=== PATIENT | male | born 1960 | race African-American/Black ===

== ENCOUNTER 2025-03-29 10:50 | Emergency (ER) | payer MEDICARE, MEDICAID ==
[~2025-03-29] VITALS: Ht 177.8 cm; Wt 79.0 kg
[~2025-03-29 10:50] MED LIST: AMLO5TAB88 PO; FOLI-43 PO; HYDR25TA PO; MELA1TAB51 PO; THIA100T72 PO; TOPUD PO; TRAM-534 PO
[2025-03-29 10:58] VITALS: O2SAT 99
[2025-03-29 13:39] VITALS: BP 142/92; PULSE 97; RESP 17; TEMP 36.7; O2SAT 99
== END 2025-03-29 13:39 | disposition home or self-care (01) ==
LOC: ER 10:50
DX: S31.119D Laceration without foreign body of abdominal wall, unspecified quadrant without penetration into peritoneal cavity, subsequent encounter (principal); I10 Essential (primary) hypertension; F12.90 Cannabis use, unspecified, uncomplicated; Z88.0 Allergy status to penicillin; X58.XXXD Exposure to other specified factors, subsequent encounter
CPT/HCPCS: 99281

== ENCOUNTER 2025-03-31 23:42 | Inpatient (IN) | payer MEDICARE, MEDICAID ==
[~2025-03-31] VITALS: Ht 177.8 cm; Wt 74.8 kg
[2025-04-01] MEDS: MORPHINE SULFATE 2 MG/ML INJ (NOT FOR IM USE) IV ONE ×2 (00:37→01:43)
[2025-04-01] MEDS: SODIUM CHLORIDE 0.9% 1,000 ML IV ONE (00:44)
[2025-04-01 00:49] LABS: BASOPHILS % 0.2 % (0.0-2.0); EOSINOPHILS % 0.3 % (0.0-5.0); HEMATOCRIT. 36.8 % (42.0-52.0); HEMOGLOBIN. 11.7 g/dL (14.0-18.0); LYMPHOCYTES % 8.6 % (20.0-50.0); MEAN CORPUSCULAR HEMOGLOBIN 26.3 pg (28.0-32.0); MEAN CORPUSCULAR HGB CONC 31.8 g/dL (31.0-37.0); MEAN CORPUSCULAR VOLUME 82.6 fL (80.0-94.0); MONOCYTES % 5.2 % (2.0-8.0); NEUTROPHILS % 85.7 % (40.0-76.0); PLATELET 537 x1000/uL (130-400); RED BLOOD CELL COUNT 4.46 mill/uL (4.7-6.1); RED CELL DISTRIBUTION WIDTH 14.5 % (11.6-14.6); WHITE BLOOD COUNT 14.4 x1000/uL (4.5-11.0)
[2025-04-01 00:56] LABS: CARBON DIOXIDE 24 mEq/L (21-32); CHLORIDE 102 mEq/L (98-107); POTASSIUM 3.8 mEq/L (3.5-5.1); SODIUM 136 mEq/L (136-145)
[2025-04-01 00:57] LABS: CALCIUM 9.9 mg/dL (8.7-10.4)
[2025-04-01 01:02] LABS: ETHANOL BLOOD < 10 mg/dL (<10); GLUCOSE 130 mg/dL (70-105); UREA NITROGEN BLOOD 9 mg/dL (9-23)
[2025-04-01 01:03] LABS: TROPONIN I HIGH SENSITIVITY 4 ng/L (3.0-53)
[2025-04-01 01:04] LABS: ALANINE AMINOTRANSFERASE < 7 IU/L (10-49); ALBUMIN 4.6 g/dL (3.2-4.8); ASPARTATE AMINOTRANSFERASE 17 IU/L (<34); BILIRUBIN DIRECT < 0.1 mg/dL (<=3.0); BILIRUBIN TOTAL 0.3 mg/dL (0.1-1.0)
[2025-04-01] MEDS: ONDANSETRON HCL 4MG/2ML INJ IV ONE (01:43)
[2025-04-01] MEDS ORDERED: PIPERACILLIN/TAZO 3.375G/100ML 100 ML IV STA (02:09)
[2025-04-01] MEDS: PIPERACILLIN/TAZO 3.375G/50ML 50 ML IV SCH ×3 (02:36→21:05)
[2025-04-01] MEDS: METRONIDAZOLE 500 MG PREMIX 100 ML IV ONE (02:37)
[2025-04-01] MEDS ORDERED: ACETAMINOPHEN 325MG TABLET PO PRN (02:45)
[2025-04-01] MEDS: LABETALOL 5MG/ML 4ML INJ IV ONE (03:06)
[2025-04-01] MEDS ORDERED: NALOXONE HCL 0.4MG/ML VIAL IV PRN (03:15)
[2025-04-01 04:00] LABS: CLARITY URINE CLEAR (CLEAR); COLOR URINE YELLOW (YELLOW); GLUCOSE URINE NEGATIVE (NEGATIVE); KETONES URINE NEGATIVE (NEGATIVE); LEUKOCYTE ESTERASE URINE NEGATIVE (NEGATIVE); NITRITE URINE NEGATIVE (NEGATIVE); OCCULT BLOOD URINE NEGATIVE (NEGATIVE); PROTEIN URINE 1+ (NEGATIVE); SPECIFIC GRAVITY URINE 1.059 (1.005-1.030)
[2025-04-01 04:01] LABS: *AMPHETAMINES SCREEN URINE NEGATIVE (NEGATIVE); *BARBITURATES SCREEN URINE NEGATIVE (NEGATIVE); *BENZODIAZEPINES SCREEN URINE NEGATIVE (NEGATIVE); *COCAINE SCREEN URINE PRESUMPTIVE POSITIVE (NEGATIVE); CANNABINOID URINE SCREEN PRESUMPTIVE POSITIVE (NEGATIVE); METHADONE URINE SCREEN NEGATIVE (NEGATIVE); OPIATES URINE SCREEN PRESUMPTIVE POSITIVE (NEGATIVE); PHENCYCLIDINE URINE SCREEN PRESUMTIVE POSITIVE (NEGATIVE)
[2025-04-01] MEDS: ONDANSETRON HCL 4MG/2ML INJ IV PRN (04:13)
[2025-04-01] MEDS: MORPHINE SULFATE 4 MG/ML INJ (FOR IV/IM USE) IV PRN (04:14)
[2025-04-01 04:22] LABS: SQUAMOUS EPITHELIAL CELL URINE 1+ /lpf (RARE/1+)
[2025-04-01 04:23] LABS: BACTERIA URINE NONE SEEN; WBC URINE 0-2 /hpf (0-2)
[2025-04-01] MEDS: SODIUM CHLORIDE 0.45% 1,000 ML IV SCH (04:30)
[2025-04-01 04:36] LABS: ECSTASY MDMA SCREEN URINE NEGATIVE (NEGATIVE)
[2025-04-01 05:02] VITALS: BP 142/94; PULSE 83; RESP 18; TEMP 36.6
[2025-04-01] MEDS: LORAZEPAM 2MG/ML UD SYRINGE IV SCH (05:18)
[2025-04-01] MEDS ORDERED: IOHEXOL-300 100 ML BOTTLE ONE (06:30)
[2025-04-01 06:53] LABS: PROTHROMBIN TIME 10.6 sec (9.6-11.0)
[2025-04-01] MEDS: VANCOMYCIN 1.75GM PMX (XELLIA) 350 ML IV SCH (07:49)
[2025-04-01 08:16] VITALS: BP 178/125; PULSE 89; RESP 18; TEMP 36.6; O2SAT 100
[2025-04-01] MEDS: THIAMINE HCL 100MG TABLET PO SCH (08:57)
[2025-04-01] MEDS: PANTOPRAZOLE SODIUM 40 MG/VIAL IV SCH (08:57)
[2025-04-01] MEDS: FERROUS SULFATE 325MG TABLET PO SCH (08:57)
[2025-04-01] MEDS: FOLIC ACID 1MG TABLET PO SCH (08:57)
[2025-04-01] MEDS: MULTIVITAMINS,THER W-MINERALS TABLET PO SCH (08:57)
[2025-04-01] MEDS: AMLODIPINE 5MG TABLET PO SCH (08:58)
[2025-04-01] MEDS: HYDROCODONE/ACETAMINOPHEN 5/325MG TABLET PO PRN (09:00)
[2025-04-01 12:17] VITALS: BP 149/112; PULSE 90; RESP 18; TEMP 36.6; O2SAT 97
[2025-04-01] MEDS: DEXT 5%/0.9% NACL 1,000 ML IV SCH (15:22)
[2025-04-01 16:21] VITALS: BP 160/113; PULSE 85; RESP 18; TEMP 36.6; O2SAT 98
[2025-04-01] MEDS: VANCOMYCIN 1GM/200ML PMX (BAXTER) IV SCH (16:31)
[2025-04-01] MEDS: HYDROCHLOROTHIAZIDE 25MG TABLET PO SCH (16:59)
[2025-04-01 18:52] LABS: CHLORIDE 100 mEq/L (98-107); POTASSIUM 4.4 mEq/L (3.5-5.1); SODIUM 133 mEq/L (136-145)
[2025-04-01 18:53] LABS: CALCIUM 9.4 mg/dL (8.7-10.4); CARBON DIOXIDE 19 mEq/L (21-32)
[2025-04-01 18:58] LABS: CREATININE 1.1 mg/dL (0.6-1.3); GLUCOSE 154 mg/dL (70-105)
[2025-04-01 18:59] LABS: UREA NITROGEN BLOOD 12 mg/dL (9-23)
[2025-04-01 19:00] LABS: ALANINE AMINOTRANSFERASE 7 IU/L (10-49); ALBUMIN 4.1 g/dL (3.2-4.8); ASPARTATE AMINOTRANSFERASE 14 IU/L (<34)
[2025-04-01 19:01] LABS: BILIRUBIN TOTAL 0.4 mg/dL (0.1-1.0); PHOSPHORUS 5.3 mg/dL (2.5-4.9); PROTEIN TOTAL 8.2 g/dL (6.0-8.3)
[2025-04-01 19:54] VITALS: BP 156/107; PULSE 93; RESP 20; TEMP 36.5; O2SAT 95
[2025-04-01 23:39] VITALS: BP 145/94; PULSE 88; RESP 20; TEMP 36.8; O2SAT 96
[2025-04-02 03:53] VITALS: BP 164/100; PULSE 73; RESP 20; TEMP 36.6; O2SAT 99
[2025-04-02] MEDS: HYDRALAZINE 20MG/ML VIAL IV NR (04:06)
[2025-04-02 08:00] LABS: HEMATOCRIT. 35.1 % (42.0-52.0); HEMOGLOBIN. 11.4 g/dL (14.0-18.0); MEAN CORPUSCULAR HEMOGLOBIN 26.4 pg (28.0-32.0); MEAN CORPUSCULAR HGB CONC 32.5 g/dL (31.0-37.0); MEAN CORPUSCULAR VOLUME 81.3 fL (80.0-94.0); MEAN PLATELET VOLUME 7.2 fl (7.4-10.4); PLATELET 522 x1000/uL (130-400); RED BLOOD CELL COUNT 4.32 mill/uL (4.7-6.1); RED CELL DISTRIBUTION WIDTH 14.8 % (11.6-14.6); WHITE BLOOD COUNT 16.5 x1000/uL (4.5-11.0)
[2025-04-02 08:01] VITALS: BP 170/97; PULSE 96; RESP 18; TEMP 36.6; O2SAT 99
[2025-04-02 08:04] LABS: CARBON DIOXIDE 22 mEq/L (21-32); CHLORIDE 101 mEq/L (98-107); POTASSIUM 3.9 mEq/L (3.5-5.1); SODIUM 134 mEq/L (136-145)
[2025-04-02 08:05] LABS: CALCIUM 8.5 mg/dL (8.7-10.4)
[2025-04-02 08:09] LABS: CREATININE 1.2 mg/dL (0.6-1.3); DIFFERENTIAL COMMENT 1; GLUCOSE 144 mg/dL (70-105)
[2025-04-02 08:10] LABS: UREA NITROGEN BLOOD 19 mg/dL (9-23)
[2025-04-02] MEDS: CLONIDINE 0.1MG TABLET PO PRN (08:53)
[2025-04-02 09:46] LABS: PLATELET ESTIMATE INCREAS
[2025-04-02 11:48] VITALS: BP 163/87; PULSE 73; RESP 20; TEMP 36.4; O2SAT 99
[2025-04-02 16:00] VITALS: BP 143/71; PULSE 57; RESP 18; TEMP 36.8; O2SAT 99
[2025-04-02 20:36] LABS: IRON 21 ug/dL (65-175)
[2025-04-02 20:39] LABS: TOTAL IRON BINDING CAPACITY 394 ug/dl (250-425)
[2025-04-02 20:42] LABS: FERRITIN 11 ng/mL (22-322); FOLIC ACID (FOLATE) SERUM 8.49 ng/mL (>5.38); VITAMIN B12 SERUM 395 pg/mL (211-911)
[2025-04-02 20:47] VITALS: BP 145/88; PULSE 89; RESP 19; TEMP 36.6; O2SAT 94
[2025-04-02] MEDS: VANCOMYCIN 750MG PMX (XELLIA) 150 ML IV SCH (21:07)
[2025-04-03] VITALS: BP 148/90; PULSE 78; RESP 20; TEMP 36.7; O2SAT 98
[2025-04-03 04:00] VITALS: BP 152/111; PULSE 97; RESP 16; TEMP 36.6; O2SAT 95
[2025-04-03 06:50] LABS: BASOPHILS % 0.2 % (0.0-2.0); HEMATOCRIT 29.9 % (42.0-52.0); HEMATOCRIT. 29.9 % (42.0-52.0); HEMOGLOBIN 9.8 g/dL (14.0-18.0); HEMOGLOBIN. 9.8 g/dL (14.0-18.0); MEAN CORPUSCULAR HEMOGLOBIN 26.4 pg (28.0-32.0); MEAN CORPUSCULAR HGB CONC 32.9 g/dL (31.0-37.0); MEAN CORPUSCULAR VOLUME 80.1 fL (80.0-94.0); MONOCYTES % 10.6 % (2.0-8.0); NEUTROPHILS % 75.2 % (40.0-76.0); PLATELET 435 x1000/uL (130-400); RED BLOOD CELL COUNT 3.73 mill/uL (4.7-6.1); RED CELL DISTRIBUTION WIDTH 14.7 % (11.6-14.6); WHITE BLOOD COUNT 9.5 x1000/uL (4.5-11.0)
[2025-04-03 07:05] LABS: CHLORIDE 103 mEq/L (98-107); POTASSIUM 3.8 mEq/L (3.5-5.1); SODIUM 134 mEq/L (136-145)
[2025-04-03 07:06] LABS: CALCIUM 8.3 mg/dL (8.7-10.4); CARBON DIOXIDE 25 mEq/L (21-32)
[2025-04-03 07:11] LABS: CREATININE 0.8 mg/dL (0.6-1.3); GLUCOSE 103 mg/dL (70-105); UREA NITROGEN BLOOD 12 mg/dL (9-23)
[2025-04-03 08:00] VITALS: BP 161/106; PULSE 86; RESP 20; TEMP 36.6; O2SAT 98
[2025-04-03 11:56] VITALS: BP 164/104; PULSE 86; RESP 18; TEMP 36.4; O2SAT 97
[2025-04-03] MEDS: LABETALOL 5MG/ML 4ML INJ IV PRN (13:44)
[2025-04-03 16:00] VITALS: BP 157/97; PULSE 79; RESP 20; TEMP 36.7; O2SAT 99
[2025-04-03 20:27] VITALS: BP 154/94; PULSE 73; RESP 16; TEMP 36.6; O2SAT 99
[2025-04-03] MEDS: AMLODIPINE 5MG TABLET PO NR (20:44)
[2025-04-04 00:23] VITALS: BP 146/89; PULSE 85; RESP 17; TEMP 36.4; O2SAT 96
[2025-04-04 04:00] VITALS: BP 131/88; PULSE 84; RESP 16; TEMP 36.4; O2SAT 98
[2025-04-04 07:18] LABS: CHLORIDE 100 mEq/L (98-107); HEMATOCRIT 29.5 % (42.0-52.0); HEMOGLOBIN 9.7 g/dL (14.0-18.0); MEAN CORPUSCULAR HEMOGLOBIN 26.1 pg (28.0-32.0); MEAN CORPUSCULAR HGB CONC 32.8 g/dL (31.0-37.0); MEAN CORPUSCULAR VOLUME 79.7 fL (80.0-94.0); PLATELET 405 x1000/uL (130-400); POTASSIUM 3.5 mEq/L (3.5-5.1); RED CELL DISTRIBUTION WIDTH 14.6 % (11.6-14.6); SODIUM 133 mEq/L (136-145); WHITE BLOOD COUNT 7.2 x1000/uL (4.5-11.0)
[2025-04-04 07:19] LABS: CALCIUM 8.2 mg/dL (8.7-10.4); CARBON DIOXIDE 27 mEq/L (21-32)
[2025-04-04 07:24] LABS: CREATININE 0.7 mg/dL (0.6-1.3); GLUCOSE 106 mg/dL (70-105)
[2025-04-04 07:25] LABS: UREA NITROGEN BLOOD 7 mg/dL (9-23)
[2025-04-04 07:27] LABS: PHOSPHORUS 2.9 mg/dL (2.5-4.9)
[2025-04-04 08:00] VITALS: BP 141/78; PULSE 113; RESP 16; TEMP 36.3; O2SAT 97
[2025-04-04] MEDS: AMLODIPINE 10MG TABLET PO SCH (09:29)
[2025-04-04 12:00] VITALS: BP 135/80; PULSE 94; RESP 16; TEMP 36.3; O2SAT 96
[2025-04-04] MEDS: MAGNESIUM 2 G PREMIX 50 ML IV SCH (15:09)
[2025-04-04 16:00] VITALS: BP 167/106; PULSE 110; RESP 17; RESP 20; TEMP 36.5; TEMP 36.7; O2SAT 98
[2025-04-04] MEDS: DIATR MEGLU/DIATRIZOATE SOLN 30ML PO NR (17:18)
[2025-04-04 20:00] VITALS: BP 175/111; PULSE 83; RESP 20; TEMP 36.6; O2SAT 100
[2025-04-04] MEDS: HYDRALAZINE 20MG/ML VIAL IV PRN (21:19)
[2025-04-04] MEDS: MORPHINE SULFATE 4 MG/ML INJ (FOR IV/IM USE) IV PRN (21:20)
[2025-04-05] VITALS: BP 118/74; PULSE 91; RESP 18; TEMP 37.2; O2SAT 98
[2025-04-05 03:49] VITALS: BP 124/79; PULSE 84; RESP 18; TEMP 36.7; O2SAT 97
[2025-04-05 04:55] LABS: HEMATOCRIT 33.1 % (42.0-52.0); HEMOGLOBIN 10.9 g/dL (14.0-18.0); MEAN CORPUSCULAR HEMOGLOBIN 26.3 pg (28.0-32.0); MEAN CORPUSCULAR VOLUME 79.6 fL (80.0-94.0); PLATELET 429 x1000/uL (130-400); RED BLOOD CELL COUNT 4.17 mill/uL (4.7-6.1); RED CELL DISTRIBUTION WIDTH 14.8 % (11.6-14.6); WHITE BLOOD COUNT 7.6 x1000/uL (4.5-11.0)
[2025-04-05 07:43] LABS: CARBON DIOXIDE 27 mEq/L (21-32); CHLORIDE 98 mEq/L (98-107); POTASSIUM 3.4 mEq/L (3.5-5.1); SODIUM 130 mEq/L (136-145)
[2025-04-05 07:44] LABS: CALCIUM 8.7 mg/dL (8.7-10.4)
[2025-04-05 07:49] LABS: CREATININE 0.7 mg/dL (0.6-1.3); GLUCOSE 111 mg/dL (70-105); UREA NITROGEN BLOOD 9 mg/dL (9-23)
[2025-04-05 08:17] VITALS: BP 137/78; PULSE 70; RESP 18; TEMP 36.4; O2SAT 98
[2025-04-05] MEDS: DEXT IV SCH (10:00)
[2025-04-05] MEDS: KCL IV SCH (10:00)
[2025-04-05] MEDS: NACL IV SCH (10:00)
[2025-04-05] MEDS ORDERED: BUPIVACAINE HCL/PF 0.5% (5MG/ML) 10ML ONE (10:18)
[2025-04-05 12:00] VITALS: BP 134/88; PULSE 72; RESP 18; TEMP 37.1; O2SAT 98
[2025-04-05] MEDS ORDERED: PROPOFOL 200MG/20ML VIAL IV ONE (12:41)
[2025-04-05] MEDS ORDERED: ROCURONIUM BROMIDE 10MG/ML VIAL 5ML IV ONE (12:42)
[2025-04-05] MEDS ORDERED: SUCCINYLCHOLINE CHLORIDE 200MG/10ML IV ONE (12:42)
[2025-04-05] MEDS ORDERED: METOCLOPRAMIDE HCL 10MG/2ML VIAL ONE (12:44)
[2025-04-05] MEDS ORDERED: ONDANSETRON HCL 4MG/2ML INJ ONE (12:44)
[2025-04-05] MEDS ORDERED: LIDOCAINE HCL 1% 10 MG/ML 10ML VIAL ONE (12:44)
[2025-04-05] MEDS ORDERED: SUGAMMADEX SODIUM 200MG/2ML VIAL IV ONE (12:45)
[2025-04-05] MEDS ORDERED: ACETAMINOPHEN 1000MG/100ML 100 ML IV ONE (12:45)
[2025-04-05] MEDS ORDERED: FENTANYL CITRATE/PF 50MCG/ML 2ML VIAL ONE ×2 (12:56→13:30)
[2025-04-05] MEDS ORDERED: PHENYLEPHRINE HCL 10MG/ML 1ML IV ONE (13:13)
[2025-04-05] MEDS ORDERED: HYDROMORPHONE HCL/PF 1MG/ML INJ ONE (13:15)
[2025-04-05] MEDS ORDERED: ONDANSETRON HCL 4MG/2ML INJ IV PRN ×2 (13:45→14:30)
[2025-04-05] MEDS: MORPHINE SULFATE 2 MG/ML INJ (NOT FOR IM USE) IV PRN (13:51)
[2025-04-05] MEDS: DEXT 5%/0.45% NACL KCL 20MEQ/L 1,000 ML IV SCH (14:34)
[2025-04-05] MEDS: HYDROMORPHONE HCL/PF 1MG/ML INJ IV PRN (14:42)
[2025-04-05 16:58] VITALS: BP 134/88; PULSE 83; RESP 18; TEMP 35.9; O2SAT 98
[2025-04-05] MEDS: CEFAZOLIN 1000MG PREMIX 50 ML IV SCH (18:36)
[2025-04-05 19:43] VITALS: BP 133/86; PULSE 85; RESP 20; TEMP 36.6; O2SAT 100
[2025-04-05] MEDS: FAMOTIDINE 20MG/2ML VIAL IV SCH (22:24)
[2025-04-05] MEDS: MORPHINE SULFATE 4 MG/ML INJ (FOR IV/IM USE) IV PRN (22:27)
[2025-04-06 00:02] VITALS: BP 143/92; PULSE 85; RESP 20; TEMP 36.7; O2SAT 97
[2025-04-06 03:57] VITALS: BP 131/81; PULSE 82; RESP 18; TEMP 36.8; O2SAT 97
[2025-04-06 06:23] LABS: CHLORIDE 98 mEq/L (98-107); POTASSIUM 3.7 mEq/L (3.5-5.1); SODIUM 131 mEq/L (136-145)
[2025-04-06 06:24] LABS: CALCIUM 8.3 mg/dL (8.7-10.4); CARBON DIOXIDE 26 mEq/L (21-32)
[2025-04-06 06:29] LABS: CREATININE 0.8 mg/dL (0.6-1.3); GLUCOSE 104 mg/dL (70-105); UREA NITROGEN BLOOD 11 mg/dL (9-23)
[2025-04-06 06:44] LABS: HEMATOCRIT 31.4 % (42.0-52.0); HEMOGLOBIN 10.3 g/dL (14.0-18.0); MEAN CORPUSCULAR HEMOGLOBIN 26.4 pg (28.0-32.0); MEAN CORPUSCULAR HGB CONC 32.9 g/dL (31.0-37.0); MEAN CORPUSCULAR VOLUME 80.1 fL (80.0-94.0); PLATELET 398 x1000/uL (130-400); RED BLOOD CELL COUNT 3.92 mill/uL (4.7-6.1); RED CELL DISTRIBUTION WIDTH 14.9 % (11.6-14.6); WHITE BLOOD COUNT 7.8 x1000/uL (4.5-11.0)
[2025-04-06 08:28] VITALS: BP 145/97; PULSE 83; RESP 18; TEMP 36.6; O2SAT 95
[2025-04-06 11:46] VITALS: BP 131/97; PULSE 88; RESP 18; TEMP 37; O2SAT 96
[2025-04-06 16:32] VITALS: BP 139/92; PULSE 81; RESP 18; TEMP 36.6; O2SAT 97
[2025-04-06] MEDS: ENOXAPARIN 40MG/0.4ML SYR SUBCUT SCH (17:17)
[2025-04-06] MEDS: DEXT 5%/0.9% NACL 1,000 ML IV SCH (18:09)
[2025-04-06 20:00] VITALS: BP 147/98; PULSE 80; RESP 18; TEMP 36.4; O2SAT 97
[2025-04-07] VITALS: BP 135/90; PULSE 79; RESP 18; TEMP 37.1; O2SAT 100
[2025-04-07 04:00] VITALS: BP 147/91; PULSE 82; RESP 18; TEMP 36.7; O2SAT 98
[2025-04-07 05:34] LABS: HEMATOCRIT 29.3 % (42.0-52.0); HEMOGLOBIN 9.7 g/dL (14.0-18.0); MEAN CORPUSCULAR HEMOGLOBIN 26.4 pg (28.0-32.0); MEAN CORPUSCULAR HGB CONC 33.1 g/dL (31.0-37.0); MEAN CORPUSCULAR VOLUME 79.9 fL (80.0-94.0); PLATELET 400 x1000/uL (130-400); RED BLOOD CELL COUNT 3.66 mill/uL (4.7-6.1); RED CELL DISTRIBUTION WIDTH 14.7 % (11.6-14.6); WHITE BLOOD COUNT 7.8 x1000/uL (4.5-11.0)
[2025-04-07 05:59] LABS: CHLORIDE 103 mEq/L (98-107); POTASSIUM 3.5 mEq/L (3.5-5.1); SODIUM 134 mEq/L (136-145)
[2025-04-07 06:00] LABS: CARBON DIOXIDE 26 mEq/L (21-32)
[2025-04-07 06:01] LABS: CALCIUM 8.1 mg/dL (8.7-10.4)
[2025-04-07 06:05] LABS: CREATININE 0.7 mg/dL (0.6-1.3); GLUCOSE 95 mg/dL (70-105); UREA NITROGEN BLOOD 10 mg/dL (9-23)
[2025-04-07 08:00] VITALS: BP 143/92; PULSE 92; RESP 20; TEMP 36.4; O2SAT 97
[2025-04-07 12:00] VITALS: BP 145/92; PULSE 82; RESP 18; TEMP 36.5; O2SAT 98
[2025-04-07 16:00] VITALS: BP 152/99; PULSE 77; RESP 20; TEMP 36.6; O2SAT 100
[2025-04-07 20:00] VITALS: BP 159/100; PULSE 75; RESP 18; TEMP 36.9; O2SAT 97
[2025-04-08] VITALS: BP 149/98; PULSE 80; RESP 18; TEMP 37.4; O2SAT 98
[2025-04-08] MEDS ORDERED: HYDRALAZINE 10 MG in SODIUM CHLORIDE 0.9% 49.5 ML IV PRN (04:00)
[2025-04-08 08:00] VITALS: BP 167/106; PULSE 76; RESP 18; TEMP 36.7; O2SAT 98
[2025-04-08 09:48] LABS: HEMATOCRIT 29.3 % (42.0-52.0); HEMOGLOBIN 9.8 g/dL (14.0-18.0); MEAN CORPUSCULAR HEMOGLOBIN 26.3 pg (28.0-32.0); MEAN CORPUSCULAR HGB CONC 33.3 g/dL (31.0-37.0); PLATELET 401 x1000/uL (130-400); RED BLOOD CELL COUNT 3.71 mill/uL (4.7-6.1); RED CELL DISTRIBUTION WIDTH 14.6 % (11.6-14.6)
[2025-04-08 10:02] LABS: CHLORIDE 101 mEq/L (98-107); POTASSIUM 3.3 mEq/L (3.5-5.1); SODIUM 133 mEq/L (136-145)
[2025-04-08 10:03] LABS: CARBON DIOXIDE 26 mEq/L (21-32)
[2025-04-08 10:04] LABS: CALCIUM 8.2 mg/dL (8.7-10.4)
[2025-04-08 10:08] LABS: CREATININE 0.6 mg/dL (0.6-1.3); GLUCOSE 94 mg/dL (70-105)
[2025-04-08 10:09] LABS: UREA NITROGEN BLOOD 8 mg/dL (9-23)
[2025-04-08 10:11] LABS: PHOSPHORUS 2.2 mg/dL (2.5-4.9)
[2025-04-08 12:00] VITALS: BP 150/89; PULSE 76; RESP 18; TEMP 36.7; O2SAT 96
[2025-04-08] MEDS: MAGNESIUM 4 G PREMIX 100 ML IV SCH (14:17)
[2025-04-08 16:00] VITALS: BP 153/99; PULSE 79; RESP 18; TEMP 36.6; O2SAT 95
[2025-04-08] MEDS: POTASSIUM CHLORIDE 30 MEQ in DEXT 5%/0.9% NACL 1,000 ML IV SCH (18:42)
[2025-04-08 20:00] VITALS: BP 153/105; PULSE 78; RESP 18; TEMP 36.7; O2SAT 98
[2025-04-08] MEDS: SODIUM PHOSPHATE 30 MMOL in DEXT 5% WATER 490 ML IV SCH (20:54)
[2025-04-08] MEDS ORDERED: GUAIFENESIN 600MG ER TABLET PO SCH (23:45)
[2025-04-09] VITALS (7 sets, daily range): BP systolic 136–143; BP diastolic 46–106; PULSE 59–86; RESP 16–19; TEMP 36.4–37.2; O2SAT 95–100
[2025-04-09] MEDS: IPRATROPIUM/ALBUTEROL 0.5-3(2.5)MG/3ML NEB HHN PRN (09:46)
[2025-04-10] VITALS (7 sets, daily range): BP systolic 103–140; BP diastolic 79–96; PULSE 69–85; RESP 18–20; TEMP 36.2–36.9; O2SAT 96–100
[2025-04-10 09:34] LABS: HEMATOCRIT 30.3 % (42.0-52.0); HEMOGLOBIN 10.2 g/dL (14.0-18.0); MEAN CORPUSCULAR HEMOGLOBIN 26.5 pg (28.0-32.0); MEAN CORPUSCULAR HGB CONC 33.4 g/dL (31.0-37.0); MEAN CORPUSCULAR VOLUME 79.4 fL (80.0-94.0); PLATELET 521 x1000/uL (130-400); RED BLOOD CELL COUNT 3.82 mill/uL (4.7-6.1); RED CELL DISTRIBUTION WIDTH 14.9 % (11.6-14.6); WHITE BLOOD COUNT 6.7 x1000/uL (4.5-11.0)
[2025-04-10 10:27] LABS: CARBON DIOXIDE 26 mEq/L (21-32); CHLORIDE 99 mEq/L (98-107); POTASSIUM 3.6 mEq/L (3.5-5.1); SODIUM 134 mEq/L (136-145)
[2025-04-10 10:28] LABS: CALCIUM 8.3 mg/dL (8.7-10.4)
[2025-04-10 10:33] LABS: CREATININE 0.7 mg/dL (0.6-1.3); GLUCOSE 104 mg/dL (70-105); UREA NITROGEN BLOOD 6 mg/dL (9-23)
[2025-04-10 10:35] LABS: PHOSPHORUS 2.3 mg/dL (2.5-4.9)
[2025-04-10] MEDS: ACETAMINOPHEN 325MG TABLET PO PRN (20:59)
[2025-04-10] MEDS ORDERED: MORPHINE SULFATE 2 MG/ML INJ (NOT FOR IM USE) IV PRN (21:30)
[2025-04-10] MEDS ORDERED: NALOXONE HCL 0.4MG/ML VIAL IV PRN (21:30)
[2025-04-10] MEDS: MORPHINE SULFATE 4 MG/ML INJ (FOR IV/IM USE) IV PRN (21:48)
[2025-04-11] VITALS: BP 118/83; PULSE 79; RESP 18; TEMP 36.8; O2SAT 99
[2025-04-11 04:00] VITALS: BP 127/72; PULSE 71; RESP 18; TEMP 36.5; O2SAT 98
[2025-04-11] MEDS: HYDROMORPHONE HCL/PF 1MG/ML INJ IV PRN (06:31)
[2025-04-11 08:00] VITALS: BP 116/92; PULSE 67; RESP 17; TEMP 36.5; O2SAT 97
[2025-04-11 12:00] VITALS: BP 116/92; PULSE 67; RESP 17; TEMP 36.5; O2SAT 97
[2025-04-11] MEDS ORDERED: NALOXONE HCL 0.4MG/ML VIAL IV PRN (13:45)
[2025-04-11 16:00] VITALS: BP 137/69; PULSE 60; RESP 17; TEMP 36.6; O2SAT 100
[2025-04-11] MEDS: HYDROCODONE/ACETAMINOPHEN 5/325MG TABLET PO PRN (19:38)
[2025-04-11 20:00] VITALS: BP 129/96; PULSE 86; RESP 18; TEMP 36.7; O2SAT 99
[2025-04-12] VITALS: BP 133/96; PULSE 60; RESP 19; TEMP 36.7; O2SAT 98
[2025-04-12 04:00] VITALS: BP 134/71; PULSE 60; RESP 18; TEMP 36.6; O2SAT 99
[2025-04-12 08:00] VITALS: BP 138/82; PULSE 68; RESP 17; TEMP 36.6; O2SAT 98
[2025-04-12 12:00] VITALS: BP 129/75; PULSE 66; RESP 18; TEMP 36.6; O2SAT 95
[2025-04-12 13:01] LABS: HEMATOCRIT 33.5 % (42.0-52.0); MEAN CORPUSCULAR HGB CONC 32.7 g/dL (31.0-37.0); MEAN CORPUSCULAR VOLUME 79.6 fL (80.0-94.0); PLATELET 571 x1000/uL (130-400); RED BLOOD CELL COUNT 4.22 mill/uL (4.7-6.1); RED CELL DISTRIBUTION WIDTH 14.7 % (11.6-14.6); WHITE BLOOD COUNT 6.7 x1000/uL (4.5-11.0)
[2025-04-12 13:14] LABS: CHLORIDE 97 mEq/L (98-107); POTASSIUM 4.1 mEq/L (3.5-5.1); SODIUM 130 mEq/L (136-145)
[2025-04-12 13:15] LABS: CALCIUM 9.2 mg/dL (8.7-10.4); CARBON DIOXIDE 26 mEq/L (21-32)
[2025-04-12 13:20] LABS: CREATININE 0.8 mg/dL (0.6-1.3); GLUCOSE 147 mg/dL (70-105); UREA NITROGEN BLOOD 9 mg/dL (9-23)
[2025-04-12 16:00] VITALS: BP 129/89; PULSE 97; RESP 18; TEMP 36.6; O2SAT 98
[2025-04-12 20:00] VITALS: BP 128/85; PULSE 80; RESP 20; TEMP 36.6; O2SAT 96
[2025-04-12] MEDS: HYDROMORPHONE HCL/PF 2MG/ML INJ IV PRN (20:17)
[2025-04-13] VITALS: BP 139/71; PULSE 71; RESP 20; TEMP 36.5; O2SAT 97
[2025-04-13 04:00] VITALS: BP 102/72; PULSE 76; RESP 20; TEMP 36.3; O2SAT 95
[2025-04-13 08:00] VITALS: BP 114/72; PULSE 63; RESP 20; TEMP 36.4; O2SAT 100
[2025-04-13 12:00] VITALS: BP 112/75; PULSE 80; RESP 20; TEMP 36.3; O2SAT 100
[2025-04-13 16:00] VITALS: BP 116/70; PULSE 78; RESP 20; TEMP 36.2; O2SAT 100
[2025-04-13 20:00] VITALS: BP 121/73; PULSE 82; RESP 20; TEMP 36.6; O2SAT 98
[2025-04-14] VITALS: BP 125/72; PULSE 87; RESP 20; TEMP 36.6; O2SAT 96
[2025-04-14 04:00] VITALS: BP 117/78; PULSE 76; RESP 20; TEMP 36.4; O2SAT 100
[2025-04-14 08:00] VITALS: BP 106/64; PULSE 53; RESP 19; TEMP 36.5; O2SAT 99
[2025-04-14 12:00] VITALS: BP 115/80; PULSE 77; RESP 18; TEMP 36.3; O2SAT 100
[2025-04-14 16:00] VITALS: BP 110/64; PULSE 57; RESP 18; TEMP 36.5; O2SAT 100
[2025-04-14 20:00] VITALS: BP 114/78; PULSE 89; RESP 20; TEMP 36.7; O2SAT 98
[2025-04-15] VITALS: BP 117/77; PULSE 89; RESP 20; TEMP 36.6; O2SAT 96
[2025-04-15 04:00] VITALS: BP 103/70; PULSE 81; RESP 20; TEMP 36.6; O2SAT 97
[2025-04-15 08:00] VITALS: BP 114/81; PULSE 86; RESP 18; TEMP 36.2; O2SAT 97
[2025-04-15 12:00] VITALS: BP 116/81; PULSE 86; RESP 18; TEMP 36.2; O2SAT 99
[2025-04-15 16:00] VITALS: BP 99/62; PULSE 70; RESP 18; TEMP 36.5; O2SAT 98
[2025-04-15 20:00] VITALS: BP 136/79; PULSE 89; RESP 18; TEMP 36.7; O2SAT 98
[2025-04-15] MEDS: SODIUM CHLORIDE 0.9% 250 ML IV ONE (21:29)
[2025-04-16] VITALS: BP 113/68; PULSE 92; RESP 18; TEMP 36.6; O2SAT 98
[2025-04-16 04:00] VITALS: BP 118/81; PULSE 91; RESP 18; TEMP 36.6; O2SAT 100
[2025-04-16 08:00] VITALS: BP 106/77; PULSE 80; RESP 17; TEMP 36.6; O2SAT 98
[2025-04-16 12:00] VITALS: BP 121/81; PULSE 75; RESP 18; TEMP 36.4; O2SAT 99
[2025-04-16 16:00] VITALS: BP 97/63; PULSE 87; RESP 17; TEMP 36.6; O2SAT 99
[2025-04-16 20:00] VITALS: BP 143/97; PULSE 79; RESP 18; TEMP 36.4; O2SAT 100
[2025-04-16] MEDS ORDERED: MECLIZINE 25MG TABLET PO PRN (20:00)
[2025-04-16] MEDS: IBUPROFEN 400MG TABLET PO PRN (21:39)
[2025-04-16] MEDS: TRAMADOL 50MG TABLET PO NR (23:14)
[2025-04-17 04:00] VITALS: BP 122/90; PULSE 59; RESP 16; TEMP 36.6; O2SAT 97
[2025-04-17] MEDS: ACETAMINOPHEN 325MG TABLET PO PRN (04:55)
[2025-04-17 08:00] VITALS: BP 130/83; PULSE 78; RESP 18; TEMP 36.4; O2SAT 99
[2025-04-17 12:00] VITALS: BP 124/80; PULSE 60; RESP 19; TEMP 36.6; O2SAT 98
[2025-04-17 16:00] VITALS: BP_SYST 109; BP_SYST 111; BP_DIAS 47; BP_DIAS 71; PULSE 60; PULSE 68; RESP 17; RESP 18; TEMP 36.6; TEMP 36.7; O2SAT 96; O2SAT 98
[2025-04-17 20:00] VITALS: BP 121/82; PULSE 79; RESP 19; TEMP 36.7; O2SAT 96
[2025-04-18] VITALS: BP 101/60; PULSE 75; RESP 19; TEMP 36.7; O2SAT 95
[2025-04-18 04:00] VITALS: BP 107/77; PULSE 74; RESP 19; TEMP 36.4; O2SAT 96
[2025-04-18 08:00] VITALS: BP 117/82; PULSE 76; RESP 18; TEMP 36.5; O2SAT 99
[2025-04-18 12:00] VITALS: BP 125/76; PULSE 77; RESP 17; TEMP 36.6; O2SAT 97
[2025-04-18 16:00] VITALS: BP 106/70; PULSE 79; RESP 18; TEMP 37.3; O2SAT 98
[2025-04-18] MEDS: ENOXAPARIN 40MG/0.4ML SYR SUBCUT SCH (17:09)
[2025-04-18] MEDS: MELATONIN 3MG TABLET PO SCH (20:45)
[2025-04-19] VITALS: BP 113/81; PULSE 81; RESP 20; TEMP 36.4; O2SAT 95
[2025-04-19 04:00] VITALS: BP 121/87; PULSE 84; RESP 20; TEMP 36.3; O2SAT 95
[2025-04-19 08:00] VITALS: BP 117/75; PULSE 74; RESP 19; TEMP 36.7; O2SAT 96
[2025-04-19] MEDS: FAMOTIDINE 20MG TABLET PO SCH (08:41)
[2025-04-19 12:00] VITALS: BP 124/83; PULSE 81; RESP 18; TEMP 36.7; O2SAT 99
[2025-04-19 16:00] VITALS: BP 123/91; PULSE 64; RESP 18; TEMP 36.7; O2SAT 100
[2025-04-19 20:00] VITALS: BP 124/72; PULSE 82; RESP 17; TEMP 36.5; O2SAT 99
[2025-04-19 21:26] LABS: BASOPHILS % 1.4 % (0.0-2.0); EOSINOPHILS % 3.1 % (0.0-5.0); HEMATOCRIT. 33.7 % (42.0-52.0); HEMOGLOBIN. 10.9 g/dL (14.0-18.0); LYMPHOCYTES % 29.3 % (20.0-50.0); MEAN CORPUSCULAR HGB CONC 32.4 g/dL (31.0-37.0); MEAN CORPUSCULAR VOLUME 80.3 fL (80.0-94.0); MEAN PLATELET VOLUME 7.2 fl (7.4-10.4); MONOCYTES % 9.9 % (2.0-8.0); NEUTROPHILS % 56.3 % (40.0-76.0); PLATELET 644 x1000/uL (130-400); RED BLOOD CELL COUNT 4.19 mill/uL (4.7-6.1); RED CELL DISTRIBUTION WIDTH 16.2 % (11.6-14.6); WHITE BLOOD COUNT 8.3 x1000/uL (4.5-11.0)
[2025-04-19 21:36] LABS: CARBON DIOXIDE 30 mEq/L (21-32); CHLORIDE 96 mEq/L (98-107); POTASSIUM 3.7 mEq/L (3.5-5.1); SODIUM 134 mEq/L (136-145)
[2025-04-19 21:37] LABS: CALCIUM 8.9 mg/dL (8.7-10.4)
[2025-04-19 21:42] LABS: CREATININE 0.9 mg/dL (0.6-1.3); GLUCOSE 103 mg/dL (70-105); UREA NITROGEN BLOOD 9 mg/dL (9-23)
[2025-04-19 21:44] LABS: PHOSPHORUS 2.6 mg/dL (2.5-4.9)
[2025-04-20] VITALS: BP 140/70; PULSE 75; RESP 18; TEMP 36.6; O2SAT 97
[2025-04-20 04:00] VITALS: BP 125/80; PULSE 81; RESP 18; TEMP 36.6; O2SAT 98
[2025-04-20 08:00] VITALS: BP 130/90; PULSE 73; RESP 18; TEMP 36.5; O2SAT 97
[2025-04-20 12:00] VITALS: BP 126/78; PULSE 78; RESP 19; TEMP 36.7; O2SAT 98
[2025-04-20 16:00] VITALS: BP 111/61; PULSE 83; RESP 19; TEMP 36.4; O2SAT 98
[2025-04-20 20:00] VITALS: BP 131/81; PULSE 80; RESP 17; TEMP 36.8; O2SAT 99
[2025-04-20] MEDS: ZOLPIDEM TARTRATE 5MG TABLET PO SCH (20:46)
[2025-04-21] VITALS: BP 138/87; PULSE 79; RESP 16; TEMP 36.4; O2SAT 99
[2025-04-21 04:00] VITALS: BP 124/75; PULSE 69; RESP 18; TEMP 36.2; O2SAT 100
[2025-04-21 08:00] VITALS: BP 125/80; PULSE 72; RESP 19; TEMP 36.3; O2SAT 98
== END 2025-04-21 10:00 | disposition left against medical advice (07) | DRG 335 ==
LOC: ER 23:42 → 7WST 04-01 02:05 → ENRESERV 04-01 02:21 → EDBEDREQTM 04-01 02:27 → 6EST 04-08 02:35
PROVIDERS: ADMIT Internal Medicine; ATTEND Internal Medicine
PROC: 0DN80ZZ Release Small Intestine, Open Approach (ICD-10-PCS; principal; 2025-04-05)
PROC: 0DJD0ZZ Inspection of Lower Intestinal Tract, Open Approach (ICD-10-PCS; 2025-04-05)
DX: K56.609 Unspecified intestinal obstruction, unspecified as to partial versus complete obstruction (principal); G92.9 Unspecified toxic encephalopathy; E87.1 Hypo-osmolality and hyponatremia; K92.0 Hematemesis; Z59.00 Homelessness unspecified; K56.7 Ileus, unspecified; I10 Essential (primary) hypertension; K21.9 Gastro-esophageal reflux disease without esophagitis; K57.30 Diverticulosis of large intestine without perforation or abscess without bleeding; I16.0 Hypertensive urgency; D64.9 Anemia, unspecified; D75.839 Thrombocytosis, unspecified; F12.10 Cannabis abuse, uncomplicated; F14.10 Cocaine abuse, uncomplicated; E83.42 Hypomagnesemia; E87.6 Hypokalemia; E83.39 Other disorders of phosphorus metabolism; Z91.148 Patient's other noncompliance with medication regimen for other reason; Z82.49 Family history of ischemic heart disease and other diseases of the circulatory system; Z87.11 Personal history of peptic ulcer disease; Z88.0 Allergy status to penicillin
CPT/HCPCS: 36415; 71045; 74018; 74176; 74177; 80048; 80053; 80076; 80202; 80305; 80320; 81003; 82607; 82728; 82746; 83540; 83550; 83735; 84100; 84484; 85025; 85027; 86850; 86900; 93005; 94070; 94640; 94664; 96361; 96374; 96375; 96376; 97116; 97163; 97166; 97530; 97535; 98960; 99291; A4606; J0330; J0360; J0665; J0690; J1171; J1308; J1650; J2003; J2060; J2270; J2371; J2405; J2470; J2543; J2704; J2765; J3010; J3370; J3475; J3480; J3490; J7030; J7042; J7060; Q9963; Q9967; G0480; J0131

== ENCOUNTER 2025-06-09 14:42 | Emergency (ER) | payer MEDICARE, MEDICAID ==
[~2025-06-09] VITALS: Ht 185.4 cm; Wt 68.0 kg
[2025-06-09 14:52] VITALS: O2SAT 98
[2025-06-09] MEDS ORDERED: ONDANSETRON HCL 4MG/2ML INJ IV ONE (15:15)
[2025-06-09] MEDS ORDERED: MORPHINE SULFATE 4 MG/ML INJ (FOR IV/IM USE) IV ONE (15:15)
[2025-06-09 15:30] LABS: BASOPHILS % 0.5 % (0.0-2.0); EOSINOPHILS % 0.7 % (0.0-5.0); HEMATOCRIT. 39.2 % (42.0-52.0); HEMOGLOBIN. 12.7 g/dL (14.0-18.0); LYMPHOCYTES % 26.2 % (20.0-50.0); MEAN PLATELET VOLUME 7.3 fl (7.4-10.4); MONOCYTES % 7.6 % (2.0-8.0); NEUTROPHILS % 65.0 % (40.0-76.0); PLATELET 309 x1000/uL (130-400); RED BLOOD CELL COUNT 4.91 mill/uL (4.7-6.1); RED CELL DISTRIBUTION WIDTH 19.0 % (11.6-14.6)
[2025-06-09 15:41] LABS: CREATININE 0.9 mg/dL (0.6-1.3)
[2025-06-09 15:42] LABS: ETHANOL BLOOD < 10 mg/dL (<10); UREA NITROGEN BLOOD 6 mg/dL (9-23)
[2025-06-09 15:43] LABS: ASPARTATE AMINOTRANSFERASE 15 IU/L (<34)
[2025-06-09 15:44] LABS: BILIRUBIN DIRECT 0.1 mg/dL (<=3.0); BILIRUBIN TOTAL 0.6 mg/dL (0.1-1.0); PROTEIN TOTAL 8.3 g/dL (6.0-8.3)
[2025-06-09] MEDS ORDERED: DOCU-138 MT (16:49)
[2025-06-09] MEDS ORDERED: POLY17PO3 MT (16:49)
[2025-06-09] MEDS: MORPHINE SULFATE 4 MG/ML INJ (FOR IV/IM USE) IV SCH (17:45)
[2025-06-09] MEDS: SODIUM CHLORIDE 0.9% 1,000 ML IV ONE (17:45)
[2025-06-09] MEDS: ONDANSETRON HCL 4MG/2ML INJ IV SCH (17:46)
[2025-06-09 20:25] VITALS: BP 142/82; PULSE 78; RESP 18; TEMP 37; O2SAT 98
== END 2025-06-09 21:24 | disposition home or self-care (01) ==
LOC: ER 14:42
DX: K59.00 Constipation, unspecified (principal); F12.10 Cannabis abuse, uncomplicated; I10 Essential (primary) hypertension; Z88.0 Allergy status to penicillin; Z79.899 Other long term (current) drug therapy
CPT/HCPCS: 80076; 80048; 80320; 83690; 83735; 85025; 36415; 74176; 96361; 96374; 96375; 99284; J2405; J2270; J7030; G0480